=== PATIENT | male | born 2000 | race Caucasian/White ===

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

== ENCOUNTER 2024-01-25 11:18 | Emergency (ER) | payer MEDICAID, SELFPAY ==
[2024-01-25 11:19] VITALS: BP 165/102; PULSE 66; RESP 16; TEMP 36.1; O2SAT 97; BMI 21.9
--- NOTE | 2024-01-25 11:37 | EX.ED.DYSGE1 ---
HPI History of Present Illness Chief Complaint: Dizziness Narrative Narrative: 23-year-old male who denies significant past medical history presents with lightheadedness for the last few days. He states Tuesday he got sent home from work because he was lightheaded. He vomited 2 times. Additionally, he states he had a syncopal episode at that time. He has more of a frontal headache. He always feels lightheaded is not necessarily worse with standing. He denies any chest pain or shortness of breath, no other symptoms. His symptoms are improving. Yesterday, he only vomited once or so without any blood in his emesis. No diarrhea, no other symptoms. PFSH PFSH Medical History no medical history Home Medications ?Medication ?Instructions ?Recorded ?Last Taken ?Type clonidine HCl 0.1 mg tablet 0.1 mg PO DAILY 02/23/18 Unknown History ondansetron 4 mg disintegrating 4 mg PO Q8H PRN PRN Nausea #10 tabs 07/10/21 Unknown Rx tablet Allergy/AdvReac Type Severity Reaction Status Date / Time Penicillins (PCN) Allergy Hives Verified 07/10/21 10:51 Social History Smoking Status: Never smoker ROS ROS ED ROS Narrative Constitutional: No fever, no chills. HEENT: No sore throat. No neck pain. No loss of vision. No rhinorrhea. Cardiovascular: No chest pain. No palpitations. No pedal edema. Syncopal episode 2 days ago. Respiratory: No cough, no shortness of breath. Abdominal: No abdominal pain. Positive nausea and vomiting. Genitourinary: No dysuria. No hematuria. Musculoskeletal: No myalgias. No arthralgias. Neurologic: Mild headaches. No dizziness or vertiginous symptoms. Positive lightheadedness. Skin: No rash. No change in color. Psychiatric: No depression. No anxiety. EXAM Physical Exam Const Vital Signs: 01/25/24 11:19 01/25/24 11:46 Temperature 96.9 F L Temperature Source Temporal Pulse Rate 66 Pulse Rate [Lying] 67 Pulse Rate [Sitting (for 1 minute prior to obtaining)] 68 Pulse Rate [Standing (for 1 minute prior to obtaining)] 72 Respiratory Rate 16 Blood Pressure 165/102 H Blood Pressure [Lying] 164/94 H Blood Pressure [Sitting (for 1 minute prior to obtaining)] 167/97 H Blood Pressure [Standing (for 1 minute prior to obtaining)] 161/102 H Blood Pressure Mean 123 Blood Pressure Mean [Lying] 117 Blood Pressure Mean [Sitting (for 1 minute prior to obtaining)] 120 Blood Pressure Mean [Standing (for 1 minute prior to obtaining)] 121 Pulse Ox 97 Oxygen Delivery Method Room Air MDM MDM MDM Narrative Medical decision making narrative: Differential diagnosis includes but not limited to dehydration versus orthostatic hypotension/intravascular volume depletion versus other electrolyte abnormality. Patient will be bolused normal saline and orthostatics obtained. I will check a CBC and BMP, but I do not think he needs EKG or imaging. His syncopal episode was 2 days ago and was most likely vasovagal. 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 I reviewed his laboratory work and he has normal white count of 7.9, hemoglobin normal at 14.8, platelet count normal at 237. Potassium slightly low at 3.4 which I think is nonspecific, creatinine is slightly elevated at 1.66 consistent with acute kidney injury. This should also show mild dehydration, glucose appropriately elevated at 135 with normal anion gap of 6. Orthostatics obtained and reviewed and are negative. After an IV fluid bolus he feels improved. He did not want anything for nausea. I feel he can be discharged to follow-up with a primary care provider. He can get his creatinine rechecked as an outpatient. Return instructions reviewed. Disposition is discharged home in stable condition. History & Record Review Discussion w/independent historian: Patient Additional record(s) reviewed:: Prior labs Lab Data Attestation: I reviewed the patient's lab results. Labs: Laboratory Results - last 24 hr 01/25/24 11:40 WBC 7.9 RBC 5.16 Hgb 14.8 Hct 40.7 MCV 78.9 L MCH 28.7 MCHC 36.4 H RDW Std Deviation 34.9 L RDW Coeff of Gabriel 12.3 Plt Count 237 MPV 10.5 Immature Gran % (Auto) 0.500 Neut % (Auto) 58.1 Lymph % (Auto) 31.6 [place] % (Auto) 7.2 Eos % (Auto) 2.3 Baso % (Auto) 0.3 Absolute Neuts (auto) 4.6 Absolute Lymphs (auto) 2.51 Nucleated RBC % 0 Sodium 140 Potassium 3.4 L Chloride 105 Carbon Dioxide 29.0 Anion Gap 6 BUN 18 Creatinine 1.66 H Estim Creat Clear Calc 69.05 Est GFR (MDRD) Af Amer 68 Est GFR (MDRD) Non-Af 56 L BUN/Creatinine Ratio 10.8 Glucose 135 H Calcium 8.9 Discharge Plan Triage Chief Complaint: Dizziness ED Provider: Juan Dudley Dx/Rx/DC Orders Clinical Impression: Mild dehydration, Acute kidney injury, Lightheaded Instructions: Acute Kidney Failure Dc, ED Dehydration (Adult), ED Near-Fainting, Uncertain Cause Prescriptions: No Action clonidine HCl 0.1 MG tablet 0.1 mg PO DAILY ondansetron [ondansetron] 4 MG tablet 4 mg PO Q8H PRN PRN (Reason: Nausea) Qty: 10 0RF Stand Alone Forms: ED Work / School Excuse Primary Care Provider: Kendrick Reyes Referrals: Kendrick Reyes DO [Primary Care Provider] - 3-5 Days if not improving Aldo Brasher MD [Med Staff - Active Staff] - As soon as possible Activity Restrictions/Additional Instructions: Drink plenty of oral fluids like water. Have your creatinine/kidney function rechecked by her primary care provider in the next 1 to 2 weeks. Return with new or worsening symptoms. Print Language: Dutch Disposition Disposition: Home, Self Care
[2024-01-25 11:46] VITALS: BP 161/102; BP 164/94; BP 167/97; PULSE 67; PULSE 68; PULSE 72
[2024-01-25 11:50] LABS: Absolute Lymphocyte Count 2.51 X10^3/uL (0.83-4.51); Absolute Neutrophil Count 4.6 X10^3/uL (2.0-7.7); Basophil# 0.02 X10^3/uL; Basophil% 0.3 % (0-1); Eosinophil# 0.18 X10^3/uL; Eosinophils% 2.3 % (0-5); Hematocrit 40.7 % (40-54); Hemoglobin 14.8 g/dL (13.0-16.5); Lymphocyte # 2.51 X10^3/ul (0.83-4.51); Lymphocyte % 31.6 % (19-41); Mean Corp Hgb Conc 36.4 g/dL (32-36); Mean Corpuscular Hgb 28.7 pg (27.0-32.0); Mean Corpuscular Volume 78.9 fL (80-94); Mean Platelet Vol. 10.5 fl (6.2-12.0); Monocyte# 0.57 X10^3/uL; Monocyte% 7.2 % (0-10); NRBC Flagged by Analyzer 0 % (0-5); Neutrophil # 4.62 X10^3/uL (2.7-7.7); Neutrophil % 58.1 % (47-70); Platelet Count 237 K/mm3 (150-450); RBC Distribution Width CV 12.3 % (11.6-14.6); RBC Distribution Width SD 34.9 fl (35.1-43.9); Red Blood Count 5.16 M/mm3 (4.6-6.2); White Blood Count 7.9 K/mm3 (4.4-11.0)
[2024-01-25] MEDS: 0.9% Normal Saline (1000mL) 1,000 ML 999 ML IV (11:52)
[2024-01-25 12:01] LABS: Anion Gap 6 (5-15); BUN 18 mg/dL (7-18); BUN/Creat Ratio 10.8 RATIO (10-20); Calcium,Total 8.9 mg/dL (8.5-10.1); Chloride 105 mmol/L (98-107); Creatinine, Serum 1.66 mg/dL (0.70-1.30); EST Glomerular Filtration Rate 56 mL/min (>60); Est Glom Filt Rate - Afr Amer 68 mL/min (>60); Estimated Creatinine Clearance 69.05 ml/min; Glucose 135 mg/dL (74-106); Potassium 3.4 mmol/L (3.5-5.1); Sodium Level 140 mmol/L (136-145)
[2024-01-25 13:16] VITALS: BP 157/62; PULSE 61; RESP 16; TEMP 36.6; O2SAT 99
== END 2024-01-25 13:17 | disposition home or self-care (01) ==
PROVIDERS: Emergency Provider Emergency Medicine; PCP Pediatrics; Visit Provider Emergency Medicine
DX: E86.0 Dehydration (principal); N17.9 Acute kidney failure, unspecified; R42 Dizziness and giddiness
CPT/HCPCS: 80048; 85025; 99283; A4216

== ENCOUNTER 2024-05-19 16:47 | Emergency (ER) | payer MEDICAID, SELFPAY ==
[2024-05-19 16:48] VITALS: BP 140/89; PULSE 71; RESP 18; TEMP 36.5; O2SAT 99; BMI 21.3
--- NOTE | 2024-05-19 17:18 | EX.ED.DYSGE1 ---
HPI <LIA Houston - Last Filed: 05/19/24 20:42> History of Present Illness Chief Complaint: Nausea/Vomiting Narrative Narrative: Patient presenting today with nausea and vomiting that started around 3 AM this morning. He reports that he has vomited about 10 times. He does report generalized cramping to his abdomen, especially with vomiting. His last bowel movement was about 3 days ago which is not unusual for him, he is passing gas. He denies any history of bowel obstruction or previous abdominal surgery. He reports that multiple people at work have been sick with similar symptoms. He did have a fever last night. He denies hematemesis, urinary symptoms, and diarrhea. He denies any history of marijuana use, no chronic medical conditions. PFS <LIA [place] - Last Filed: 05/19/24 20:42> [facility] Medical History (Updated 05/19/24 @ 19:17 by LIA Houston) Nausea & vomiting Home Medications ?Medication ?Instructions ?Recorded ?Last Taken ?Type clonidine HCl 0.1 mg tablet 0.1 mg PO DAILY 02/23/18 Unknown History ondansetron 4 mg disintegrating 4 mg PO Q8H PRN PRN Nausea #10 tabs 07/10/21 Unknown Rx tablet ondansetron 4 mg disintegrating 4 mg PO Q8H PRN PRN Nausea #10 tabs 05/19/24 Unknown Rx tablet Allergy/AdvReac Type Severity Reaction Status Date / Time Penicillins (PCN) Allergy Hives Verified 05/19/24 16:48 Social History Smoking Status: Never smoker ROS <LIA [place] - Last Filed: 05/19/24 20:42> ROS ED Constitutional Constitutional ED: Reports fever(s); Denies chills Cardiovascular Cardiovascular: Denies chest pain Respiratory/Chest Respiratory/Chest: Denies cough Gastrointestinal Gastrointestinal: Reports abdominal pain, nausea and vomiting; Denies diarrhea Genitourinary Genitourinary ED: Denies dysuria, hematuria or urinary urgency Musculoskeletal Musculoskeletal: Denies arthralgias or myalgias Integumentary Denies rash Neurologic Neurologic: Denies weakness EXAM <LIA [place] - Last Filed: 05/19/24 20:42> Physical Exam Const Vital Signs: 05/19/24 16:48 05/19/24 18:42 Temperature 97.7 F L 97.7 F L Temperature Source Oral Pulse Rate 71 54 L Respiratory Rate 18 18 Blood Pressure 140/89 H 133/78 H Blood Pressure Mean 106 96 Pulse Ox 99 99 Oxygen Delivery Method Room Air Positive well nourished, well developed and no apparent distress General Appearance ED: well developed HEENT Reports normocephalic and head/scalp atraumatic Mouth ED: Yes moist mucous membranes normal Eyes PERRL and EOMs intact bilaterally Neck full ROM and supple Chest Wall inspection of chest normal Resp normal respiratory effort and clear to auscultation bilaterally Cardio regular rate and regular rhythm GI soft to palpation, non-tender, non-distended and no masses GI Narrative: Negative McBurney's point tenderness, no rigidity or guarding Back/Spine normal ROM and normal to inspection Extremity normal to inspection and full ROM Neuro oriented x3, CN's II-XII intact bilaterally, moves all extremities, no focal motor deficits and no sensory deficits noted Sensorium / Orientation: awake and alert Psych mental status grossly normal and thought process normal Skin no rashes or lesions noted and no wounds <Dr. Chance Chopra DO - Last Filed: 05/19/24 19:30> Physical Exam Const Vital Signs: 05/19/24 16:48 05/19/24 18:42 Temperature 97.7 F L 97.7 F L Temperature Source Oral Pulse Rate 71 54 L Respiratory Rate 18 18 Blood Pressure 140/89 H 133/78 H Blood Pressure Mean 106 96 Pulse Ox 99 99 Oxygen Delivery Method Room Air [facility] <LIA [place] - Last Filed: 05/19/24 20:42> [facility] Narrative Medical decision making narrative: Patient presenting today with nausea and vomiting that started around 3 AM. He is nontoxic-appearing and in no acute distress, clinically he does not appear dehydrated. He is afebrile. His abdomen is soft and nontender. Abdominal labs will be obtained, he will be given IV fluids and Zofran. CBC is unremarkable, CMP shows a creatinine of 1.4, UA shows 500 urine proteins and 50 occult blood. He is tolerating p.o. fluids and does report improvement of his symptoms on reexamination. I do suspect that patient likely has a viral illness. I do not feel that abdominal imaging is indicated at this time given his nonsurgical abdomen on exam. I have given him a prescription for Zofran. I encouraged that he follow-up with his PCP. Return instructions were discussed and patient discharged home in stable condition. Supervisory Physician Note Patient was seen and examined with the Advanced Practice Provider. Nursing notes and vital signs have been reviewed. Pertinent old records have been reviewed. I agree with the essential elements of the DEBBI's history, physical exam, assessment, and plan. The differential diagnosis and management options were discussed with the DEBBI. I participated in determining and agree with the management, procedures, final impression and disposition as documented. See changes noted by me. Please see addendum or separate note for any additional details. 23-year-old male with no segment past medical history presents for evaluation of nausea and vomiting. Onset this morning. Nonbloody vomit. Generalized abdominal pain. Normal bowel movements. No diarrhea. Context at work with similar symptoms. Denies any URI symptoms, cough, chest pain, shortness of breath, dysuria. Gen: A&O x3, NAD Head: Normocephalic, atraumatic Eyes: No sclera icterus, conjunctiva clear ENT: Moist mucous membranes Neck: Trachea midline, No JVD CV: RRR, no murmurs, no peripheral edema Resp: Lungs CTA BL, no w/r/c GI: Abd soft, non-distended, non-tender, no r/r/g : No CVA tenderness Musc: Full ROM, no deformity Skin: Warm, dry Neuro: Alert, oriented, grossly intact, sensation intact Psych: Cooperative, appropriate mood and affect Given that the patient's onset of symptoms today with similar symptoms in close contacts, suspect viral etiology. NS bolus and Zofran ordered for symptoms. Basic labs ordered. CBC unremarkable. CMP shows renal insufficiency with a creatinine of 1.41 however this is downtrending from January at 1.66. Patient will need to have his kidney function reevaluated outpatient and further workup for this. No transaminitis. Lipase unremarkable. UA negative for UTI. Patient has some blood and protein in his urine. This needs to also be further worked up outpatient with his kidney function. Patient was able to tolerate p.o. intake here in the emergency department without difficulty. Suspect viral etiology as the cause of the patient's symptoms. Follow-up with PCP. Impression: 1. Nausea and and vomiting, suspect viral etiology 2. Renal insufficiency Lab Data Attestation: I reviewed the patient's lab results. Labs: Laboratory Results - last 24 hr 05/19/24 05/19/24 17:20 18:21 WBC 7.1 RBC 5.42 Hgb 15.6 Hct 43.4 MCV 80.1 MCH 28.8 MCHC 35.9 RDW Std Deviation 35.5 RDW Coeff of Gabriel 12.5 Plt Count 246 MPV 10.6 Immature Gran % (Auto) 0.300 Neut % (Auto) 57.9 Lymph % (Auto) 29.8 Cavalier % (Auto) 8.7 Eos % (Auto) 2.7 Baso % (Auto) 0.6 Absolute Neuts (auto) 4.1 Absolute Lymphs (auto) 2.13 Nucleated RBC % 0 Sodium 141 Potassium 4.1 Chloride 108 H Carbon Dioxide 28.0 Anion Gap 4 L BUN 18 Creatinine 1.41 H Estim Creat Clear Calc 79.06 Est GFR (MDRD) Af Amer 81 Est GFR (MDRD) Non-Af 67 BUN/Creatinine Ratio 12.8 Glucose 86 Calcium 9.0 Total Bilirubin 0.80 AST 20 ALT 17 Alkaline Phosphatase 60 Total Protein 6.2 L Albumin 3.3 Globulin 2.9 Albumin/Globulin Ratio 1.1 Lipase 37 Urine Color Yellow Urine Clarity Clear Urine pH 7.0 Ur Specific [place] 1.010 Urine Protein 500 H Urine Glucose (UA) Normal Urine Ketones Negative Urine Occult Blood 50 H Urine Nitrite Negative Urine Bilirubin Negative Urine Urobilinogen Normal Ur Leukocyte Esterase 25 H Urine RBC 0-5 SEEN Urine WBC 5-10 SEEN Ur Squamous Epith Cells 0 SEEN Urine Bacteria RARE Urine Mucus 0 SEEN <Dr. Chance Chopra, DO - Last Filed: 05/19/24 19:30> [facility] MDM Narrative Medical decision making narrative: Patient presenting today with nausea and vomiting that started around 3 AM. He is nontoxic-appearing and in no acute distress, clinically he does not appear dehydrated. He is afebrile. His abdomen is soft and nontender. Abdominal labs will be obtained, he will be given IV fluids and Zofran. Supervisory Physician Note Patient was seen and examined with the Advanced Practice Provider. Nursing notes and vital signs have been reviewed. Pertinent old records have been reviewed. I agree with the essential elements of the DEBBI's history, physical exam, assessment, and plan. The differential diagnosis and management options were discussed with the DEBBI. I participated in determining and agree with the management, procedures, final impression and disposition as documented. See changes noted by me. Please see addendum or separate note for any additional details. 23-year-old male with no segment past medical history presents for evaluation of nausea and vomiting. Onset this morning. Nonbloody vomit. Generalized abdominal pain. Normal bowel movements. No diarrhea. Context at work with similar symptoms. Denies any URI symptoms, cough, chest pain, shortness of breath, dysuria. Gen: A&O x3, NAD Head: Normocephalic, atraumatic Eyes: No sclera icterus, conjunctiva clear ENT: Moist mucous membranes Neck: Trachea midline, No JVD CV: RRR, no murmurs, no peripheral edema Resp: Lungs CTA BL, no w/r/c GI: Abd soft, non-distended, non-tender, no r/r/g : No CVA tenderness Musc: Full ROM, no deformity Skin: Warm, dry Neuro: Alert, oriented, grossly intact, sensation intact Psych: Cooperative, appropriate mood and affect Given that the patient's onset of symptoms today with similar symptoms in close contacts, suspect viral etiology. NS bolus and Zofran ordered for symptoms. Basic labs ordered. CBC unremarkable. CMP shows renal insufficiency with a creatinine of 1.41 however this is downtrending from January at 1.66. Patient will need to have his kidney function reevaluated outpatient and further workup for this. No transaminitis. Lipase unremarkable. UA negative for UTI. Patient has some blood and protein in his urine. This needs to also be further worked up outpatient with his kidney function. Patient was able to tolerate p.o. intake here in the emergency department without difficulty. Suspect viral etiology as the cause of the patient's symptoms. Follow-up with PCP. Impression: 1. Nausea and and vomiting, suspect viral etiology 2. Renal insufficiency Lab Data Labs: Laboratory Results - last 24 hr 05/19/24 05/19/24 17:20 18:21 WBC 7.1 RBC 5.42 Hgb 15.6 Hct 43.4 MCV 80.1 MCH 28.8 MCHC 35.9 RDW Std Deviation 35.5 RDW Coeff of Gabriel 12.5 Plt Count 246 MPV 10.6 Immature Gran % (Auto) 0.300 Neut % (Auto) 57.9 Lymph % (Auto) 29.8 Cavalier % (Auto) 8.7 Eos % (Auto) 2.7 Baso % (Auto) 0.6 Absolute Neuts (auto) 4.1 Absolute Lymphs (auto) 2.13 Nucleated RBC % 0 Sodium 141 Potassium 4.1 Chloride 108 H Carbon Dioxide 28.0 Anion Gap 4 L BUN 18 Creatinine 1.41 H Estim Creat Clear Calc 79.06 Est GFR (MDRD) Af Amer 81 Est GFR (MDRD) Non-Af 67 BUN/Creatinine Ratio 12.8 Glucose 86 Calcium 9.0 Total Bilirubin 0.80 AST 20 ALT 17 Alkaline Phosphatase 60 Total Protein 6.2 L Albumin 3.3 Globulin 2.9 Albumin/Globulin Ratio 1.1 Lipase 37 Urine Color Yellow Urine Clarity Clear Urine pH 7.0 Ur Specific [place] 1.010 Urine Protein 500 H Urine Glucose (UA) Normal Urine Ketones Negative Urine Occult Blood 50 H Urine Nitrite Negative Urine Bilirubin Negative Urine Urobilinogen Normal Ur Leukocyte Esterase 25 H Urine RBC 0-5 SEEN Urine WBC 5-10 SEEN Ur Squamous Epith Cells 0 SEEN Urine Bacteria RARE Urine Mucus 0 SEEN Discharge Plan Triage Chief Complaint: Nausea/Vomiting ED Midlevel Provider: Tori Espinoza ED Provider: Chance Chopra Dx/Rx/DC Orders Clinical Impression: Nausea & vomiting Instructions: ED Vomiting (Adult) Prescriptions: New ondansetron 4 mg tablet,disintegrating 4 mg PO Q8H PRN PRN (Reason: Nausea) Qty: 10 0RF No Action clonidine HCl 0.1 MG tablet 0.1 mg PO DAILY ondansetron [ondansetron] 4 MG tablet 4 mg PO Q8H PRN PRN (Reason: Nausea) Qty: 10 0RF Stand Alone Forms: ED Work / School Excuse Primary Care Provider: Kendrick Reyes Referrals: Kendrick Reyes DO [Primary Care Provider] - 3-5 Days Activity Restrictions/Additional Instructions: Follow-up with PCP and return for any other concerns or worsening symptoms. Stay well-hydrated. Your kidney function has been elevated on your last 2 set of labs that were drawn in our computer system. Please follow-up with your primary care physician to have your kidneys and kidney function checked. Print Language: Slovak Disposition Disposition: Home, Self Care Discharge Date/Time: 05/19/24 19:26
[2024-05-19] MEDS: 0.9% Normal Saline (1000mL) 1,000 ML 999 ML IV (17:21)
[2024-05-19] MEDS: Ondansetron 4 MG/2 ML Vial IV (17:21)
[2024-05-19 17:32] LABS: Absolute Lymphocyte Count 2.13 X10^3/uL (0.83-4.51); Absolute Neutrophil Count 4.1 X10^3/uL (2.0-7.7); Basophil# 0.04 X10^3/uL; Basophil% 0.6 % (0-1); Eosinophil# 0.19 X10^3/uL; Eosinophils% 2.7 % (0-5); Hematocrit 43.4 % (40-54); Hemoglobin 15.6 g/dL (13.0-16.5); Lymphocyte # 2.13 X10^3/ul (0.83-4.51); Lymphocyte % 29.8 % (19-41); Mean Corp Hgb Conc 35.9 g/dL (32-36); Mean Corpuscular Hgb 28.8 pg (27.0-32.0); Mean Corpuscular Volume 80.1 fL (80-94); Mean Platelet Vol. 10.6 fl (6.2-12.0); Monocyte# 0.62 X10^3/uL; Monocyte% 8.7 % (0-10); NRBC Flagged by Analyzer 0 % (0-5); Neutrophil # 4.14 X10^3/uL (2.7-7.7); Neutrophil % 57.9 % (47-70); Platelet Count 246 K/mm3 (150-450); RBC Distribution Width CV 12.5 % (11.6-14.6); RBC Distribution Width SD 35.5 fl (35.1-43.9); Red Blood Count 5.42 M/mm3 (4.6-6.2); White Blood Count 7.1 K/mm3 (4.4-11.0)
[2024-05-19 18:29] LABS: Mucous, Urine 0 SEEN /hpf (<or=2+); Squamous Epithelial Cells - UA 0 SEEN /hpf (0-5)
[2024-05-19 18:30] LABS: Color, Urine Yellow (Yellow); Glucose, Dipstick Normal (Normal); Ketone-Dipstick Negative (Negative); Leukocyte Esterase-Dipstick 25 /ul (Negative); Nitrite-Dipstick Negative (Negative); Occult Blood-Urine 50 /ul (Negative); Protein-Dipstick 500 mg/dl (Negative); Urine Bilirubin Dipstick Negative (Negative); Urine Clarity Clear (Clear); Urine Urobilinogen Normal (Normal)
[2024-05-19 18:37] LABS: Bacteria RARE /hpf (None Seen); Red Blood Cells-Urine 0-5 SEEN /hpf (0-5); White Blood Cells 5-10 SEEN /hpf (0-5)
[2024-05-19 18:41] LABS: ALB/GLOB Ratio 1.1 RATIO (0.9-2.4); AST(SGOT) 20 U/L (15-37); Alanine Aminotransfer ALT/SGPT 17 U/L (16-61); Albumin, Serum 3.3 g/dL (3.2-5.0); Alkaline Phosphatase 60 U/L (45-117); Anion Gap 4 (5-15); BUN 18 mg/dL (7-18); BUN/Creat Ratio 12.8 RATIO (10-20); Chloride 108 mmol/L (98-107); Creatinine, Serum 1.41 mg/dL (0.70-1.30); EST Glomerular Filtration Rate 67 mL/min (>60); Est Glom Filt Rate - Afr Amer 81 mL/min (>60); Estimated Creatinine Clearance 79.06 ml/min; Globulin 2.9 g/dL (2.2-4.2); Glucose 86 mg/dL (74-106); Lipase 37 U/L (13-75); Potassium 4.1 mmol/L (3.5-5.1); Protein, Total 6.2 g/dL (6.4-8.2); Sodium Level 141 mmol/L (136-145)
[2024-05-19 18:42] VITALS: BP 133/78; PULSE 54; RESP 18; TEMP 36.5; O2SAT 99
== END 2024-05-19 19:26 | disposition home or self-care (01) ==
PROVIDERS: Physician Assistant; Emergency Provider Surgery; PCP Pediatrics; Visit Provider Surgery
DX: R11.2 Nausea with vomiting, unspecified (principal); R10.84 Generalized abdominal pain; N28.9 Disorder of kidney and ureter, unspecified; Z79.899 Other long term (current) drug therapy; Z88.0 Allergy status to penicillin
CPT/HCPCS: 80053; 81001; 83690; 85025; 96361; 96374; 99282; A4216; J2405